=== PATIENT | male | born 1945 | race Caucasian/White ===

== ENCOUNTER 2019-11-18 12:26 | Inpatient (IN) ==
[2019-11-18] MEDS ORDERED: Aspirin 81 MG TAB.CHEW PO ONE (12:32)
[2019-11-18] MEDS ORDERED: 0.9 % Sodium Chloride 500 ML IVC ONE (12:32)
[2019-11-18 12:57] LABS: Basophils % 0.6 %; Eosinophils # 0.2 K/mcL (0.0-0.6); Eosinophils % 3.4 %; Hematocrit 49.1 % (37.5-50.1); Hemoglobin 15.8 g/dL (12.9-16.9); Immature Granulocytes % 0.7 % (0-4); Lymphocytes # 1.1 K/mcL (0.6-4.6); Lymphocytes % 15.1 %; Mean Corpuscular HGB Conc 32.2 g/dL (31.6-35.5); Mean Corpuscular Hemoglobin 31.7 pg (28.0-33.3); Mean Corpuscular Volume 98.6 fL (83.0-100.0); Mean Platelet Volume 10.1 fL (9.4-12.4); Monocytes # 0.7 K/mcL (0.0-1.3); Monocytes % 9.7 %; Platelet Count 240 K/mcL (140-400); Red Blood Count 4.98 M/mcL (4.19-5.50); Red Cell Distribution Width 14.3 % (11.5-14.5); Segmented Neutrophils % 70.5 %
[2019-11-18 12:59] LABS: Prothrombin Time 11.7 Seconds (9.4-12.1)
[2019-11-18 13:02] LABS: Activated Partial Thrombo Time 33.4 Seconds (26.0-36.0)
[2019-11-18 13:14] LABS: BUN/Creatinine Ratio 17 (6-26); Blood Urea Nitrogen 38 mg/dL (8-23); Calcium 8.5 mg/dL (8.6-10.3); Carbon Dioxide 23 mEq/L (23-29); Chloride 108 mEq/L (98-107); Glucose 91 mg/dL (70-105); Osmolality,Calculated 295 (280-300); Potassium 4.9 mEq/L (3.5-5.1); Sodium 138 mEq/L (136-145); Troponin I < 0.03 ng/mL (< 0.04); eGFR For African Americans 34 (> 60); eGFR For Non-African Americans 28 (> 60)
[2019-11-18 13:28] LABS: Bilirubin,Urine Negative (Negative); Blood,Urine Negative (Negative); Clarity,Urine Clear (Clear); Color,Urine Light-Yellow (Yellow); Glucose,Urine (UA) Normal (Normal); Ketones,Urine Negative (Negative); Leukocyte Esterase,Urine Negative (Negative); Mucus,Urine Few per lpf (None-Few); Nitrite,Urine Negative (Negative); Protein,Urine 30 mg/dL (Neg-Trace); RBC,Urine 0-3 per hpf (0-3); Specific Gravity,Urine 1.019 (1.010-1.025); Urobilinogen,Urine Normal (Normal); WBC,Urine 0-3 per hpf (0-3)
[2019-11-18] MEDS ORDERED: Acetaminophen 325 MG TABLET PO PRN (14:14)
[2019-11-18] MEDS ORDERED: Ringers Solution, Lactated 1,000 ML IVC SCH (14:15)
[2019-11-18] MEDS ORDERED: Perflutren Lipid Microsphere 1.3 ML in 0.9 % Sodium Chloride 8.7 ML IVP PRN (14:16)
[2019-11-18] MEDS: hydroCHLOROthiazide 25 MG TABLET PO SCH (15:44)
[2019-11-18] MEDS: atenoloL 50 MG TABLET PO SCH (20:25)
[2019-11-19 01:12] LABS: Basophils % 0.3 %; Eosinophils # 0.2 K/mcL (0.0-0.6); Eosinophils % 3.2 %; Hemoglobin 14.8 g/dL (12.9-16.9); Immature Granulocytes % 0.5 % (0-4); Lymphocytes # 1.2 K/mcL (0.6-4.6); Lymphocytes % 19.6 %; Mean Corpuscular HGB Conc 32.9 g/dL (31.6-35.5); Mean Corpuscular Hemoglobin 32.5 pg (28.0-33.3); Mean Corpuscular Volume 98.9 fL (83.0-100.0); Mean Platelet Volume 10.1 fL (9.4-12.4); Monocytes # 0.6 K/mcL (0.0-1.3); Monocytes % 9.3 %; Neutrophils # 4.2 K/mcL (1.6-8.9); Platelet Count 213 K/mcL (140-400); Red Blood Count 4.55 M/mcL (4.19-5.50); Red Cell Distribution Width 14.2 % (11.5-14.5); Segmented Neutrophils % 67.1 %; White Blood Count 6.3 K/mcL (4.3-11.1)
[2019-11-19 01:30] LABS: Calcium 7.8 mg/dL (8.6-10.3); Chol/HDL Ratio 7.1 (0-4.9); Magnesium 1.4 mg/dL (1.6-2.6); Phosphorous 2.8 mg/dL (2.7-4.5); Potassium 4.4 mEq/L (3.5-5.1)
[2019-11-19] MEDS ORDERED: Regadenoson 0.4 MG/5 ML SYRINGE IVP ONE (09:13)
[2019-11-19] MEDS: hydroCHLOROthiazide 25 MG TABLET PO SCH (12:01)
[2019-11-19] MEDS: Aspirin Enteric Coated 81 MG Tablet PO SCH (12:01)
[2019-11-19] MEDS: atenoloL 50 MG TABLET PO SCH ×2 (12:01→20:25)
[2019-11-19] MEDS: Fenofibrate 54 MG TABLET PO SCH (12:02)
[2019-11-20 07:38] LABS: Calcium 8.7 mg/dL (8.6-10.3); Magnesium 1.8 mg/dL (1.6-2.6); Potassium 4.7 mEq/L (3.5-5.1)
[2019-11-20] MEDS: Aspirin Enteric Coated 81 MG Tablet PO SCH (08:23)
[2019-11-20] MEDS: hydroCHLOROthiazide 25 MG TABLET PO SCH (08:23)
[2019-11-20] MEDS: atenoloL 50 MG TABLET PO SCH ×2 (08:24→19:26)
[2019-11-20] MEDS: Fenofibrate 54 MG TABLET PO SCH (08:24)
[2019-11-20] MEDS ORDERED: *HR* Heparin 10,000 UNIT/10 ML VIAL ONE (10:18)
[2019-11-20] MEDS ORDERED: 0.9 % Sodium Chloride 1,000 ML ONE ×2 (10:18→10:42)
[2019-11-20] MEDS ORDERED: ISOVUE-370 200 ML INFUS..BTL ONE (10:18)
[2019-11-20] MEDS ORDERED: Heparin 1,000 UNITS/500 mL 500 ML ONE (10:18)
[2019-11-20] MEDS ORDERED: Nitroglycerin 1,000 MCG/10 ML VIAL IV ONE (10:18)
[2019-11-20] MEDS ORDERED: 0.9 % Sodium Chloride 1,000 ML IVC SCH (10:30)
[2019-11-20] MEDS ORDERED: *HR* FentaNYL (PF) 100 MCG/2 ML VIAL ONE (10:42)
[2019-11-20] MEDS ORDERED: *HR* Midazolam HCl 2 MG/2 ML VIAL ONE (10:42)
[2019-11-20] MEDS: Isosorbide MONOnitrate (24 HR) 60 MG TAB.ER.24H PO SCH (15:38)
[2019-11-21 02:27] LABS: Calcium 8.6 mg/dL (8.6-10.3); Potassium 4.8 mEq/L (3.5-5.1)
[2019-11-21] MEDS: Fenofibrate 54 MG TABLET PO SCH (08:08)
[2019-11-21] MEDS: atenoloL 50 MG TABLET PO SCH ×2 (08:08→21:27)
[2019-11-21] MEDS: hydroCHLOROthiazide 25 MG TABLET PO SCH (08:09)
[2019-11-21] MEDS: Isosorbide MONOnitrate (24 HR) 60 MG TAB.ER.24H PO SCH (08:09)
[2019-11-21] MEDS: Aspirin Enteric Coated 81 MG Tablet PO SCH (08:09)
[2019-11-21] MEDS: Ranolazine 500 MG TAB.ER.12H PO SCH ×2 (10:18→21:27)
[2019-11-21] MEDS: 0.9 % Sodium Chloride 1,000 ML IVC SCH (11:45)
[2019-11-22] MEDS: Ranolazine 500 MG TAB.ER.12H PO SCH ×2 (07:53→20:59)
[2019-11-22] MEDS: Fenofibrate 54 MG TABLET PO SCH (07:54)
[2019-11-22] MEDS: Isosorbide MONOnitrate (24 HR) 60 MG TAB.ER.24H PO SCH (07:54)
[2019-11-22] MEDS: Aspirin Enteric Coated 81 MG Tablet PO SCH (07:54)
[2019-11-22] MEDS: atenoloL 50 MG TABLET PO SCH ×2 (07:54→20:59)
[2019-11-22] MEDS: 0.9 % Sodium Chloride 1,000 ML IVC SCH (08:02)
[2019-11-22 11:00] LABS: Calcium 8.3 mg/dL (8.6-10.3); Potassium 4.5 mEq/L (3.5-5.1)
[2019-11-23 06:49] VITALS: BP 154/91
[2019-11-23] MEDS: Fenofibrate 54 MG TABLET PO SCH (07:34)
[2019-11-23] MEDS: Isosorbide MONOnitrate (24 HR) 60 MG TAB.ER.24H PO SCH (07:34)
[2019-11-23] MEDS: atenoloL 50 MG TABLET PO SCH (07:34)
[2019-11-23] MEDS: Aspirin Enteric Coated 81 MG Tablet PO SCH (07:34)
[2019-11-23] MEDS: Ranolazine 500 MG TAB.ER.12H PO SCH (07:34)
[2019-11-23 07:52] LABS: Calcium 8.4 mg/dL (8.6-10.3); Potassium 4.5 mEq/L (3.5-5.1)
== END 2019-11-23 10:40 | disposition home or self-care (01) | DRG 287 ==
LOC: 3BNU 12:26 → EMEROOARM 12:26 → SUATTDRO 13:48 → 3BNU 14:17
PROVIDERS: ADMIT Internal Medicine; ATTEND Internal Medicine

== ENCOUNTER 2019-12-20 10:39 | Inpatient (IN) ==
[2019-12-20 11:45] LABS: Blood Urea Nitrogen > 130 mg/dL (8-23); Calcium 8.2 mg/dL (8.6-10.3); Carbon Dioxide 19 mEq/L (23-29); Chloride 94 mEq/L (98-107); Glucose 116 mg/dL (70-105); Potassium 4.5 mEq/L (3.5-5.1); Sodium 130 mEq/L (136-145); eGFR For African Americans 8 (> 60); eGFR For Non-African Americans 7 (> 60)
[2019-12-20 11:46] LABS: Bilirubin,Urine Negative (Negative); Blood,Urine Negative (Negative); Clarity,Urine Clear (Clear); Color,Urine Yellow (Yellow); Glucose,Urine (UA) Normal (Normal); Ketones,Urine Negative (Negative); Leukocyte Esterase,Urine Negative (Negative); Nitrite,Urine Negative (Negative); PH,Urine 5.5 pH Units (5.0-8.0); Protein,Urine Negative (Neg-Trace); Specific Gravity,Urine 1.017 (1.010-1.025); Urobilinogen,Urine Normal (Normal)
[2019-12-20 11:52] LABS: Troponin I < 0.03 ng/mL (< 0.04)
[2019-12-20 12:28] LABS: Basophils % 0.2 %; Eosinophils % 0.1 %; Hematocrit 43.5 % (37.5-50.1); Immature Granulocytes % 1.2 % (0-4); Lymphocytes # 0.3 K/mcL (0.6-4.6); Mean Corpuscular HGB Conc 34.5 g/dL (31.6-35.5); Mean Platelet Volume 10.5 fL (9.4-12.4); Monocytes # 0.5 K/mcL (0.0-1.3); Neutrophils # 9.2 K/mcL (1.6-8.9); Platelet Count 376 K/mcL (140-400); Red Blood Count 4.84 M/mcL (4.19-5.50); Red Cell Distribution Width 13.6 % (11.5-14.5); Segmented Neutrophils % 90.5 %; White Blood Count 10.1 K/mcL (4.3-11.1)
[2019-12-20 12:32] LABS: Mean Corpuscular Volume 89.9 fL (83.0-100.0)
[2019-12-20] MEDS ORDERED: 0.9 % Sodium Chloride 1,000 ML IV ONE (13:16)
[2019-12-20] MEDS ORDERED: Naloxone 0.4 MG/ML INJ IVP PRN (13:59)
[2019-12-20 14:23] LABS: INR 1.4; Prothrombin Time 16.3 Seconds (9.4-12.1)
[2019-12-20 14:26] LABS: Activated Partial Thrombo Time 32.3 Seconds (26.0-36.0)
[2019-12-20 14:33] LABS: Magnesium 2.2 mg/dL (1.6-2.6); Phosphorous 6.5 mg/dL (2.7-4.5)
[2019-12-20 15:09] LABS: Creatine Kinase 100 Units/L (30-223); Uric Acid 13.1 mg/dL (2.3-7.6)
[2019-12-20] MEDS ORDERED: 0.9 % Sodium Chloride 1,000 ML IVC SCH ×2 (15:45)
[2019-12-20 17:03] LABS: Protein/Creatinine Ratio,Urine 0.2 mg/mg (0.00-0.20); Sodium, Urine 35.7 mEq/L
[2019-12-20] MEDS: atenoloL 50 MG TABLET PO SCH (20:49)
[2019-12-20] MEDS: Ranolazine 500 MG TAB.ER.12H PO SCH (20:49)
[2019-12-21 02:44] LABS: Basophils % 0.3 %; Eosinophils % 0.2 %; Hematocrit 41.7 % (37.5-50.1); Hemoglobin 14.4 g/dL (12.9-16.9); Immature Granulocytes % 2.1 % (0-4); Lymphocytes # 0.4 K/mcL (0.6-4.6); Lymphocytes % 3.8 %; Mean Corpuscular HGB Conc 34.5 g/dL (31.6-35.5); Mean Corpuscular Hemoglobin 31.5 pg (28.0-33.3); Mean Corpuscular Volume 91.2 fL (83.0-100.0); Mean Platelet Volume 10.4 fL (9.4-12.4); Monocytes # 0.6 K/mcL (0.0-1.3); Monocytes % 6.1 %; Neutrophils # 9.1 K/mcL (1.6-8.9); Platelet Count 352 K/mcL (140-400); Red Blood Count 4.57 M/mcL (4.19-5.50); Red Cell Distribution Width 13.7 % (11.5-14.5); Segmented Neutrophils % 87.5 %; White Blood Count 10.4 K/mcL (4.3-11.1)
[2019-12-21 03:07] LABS: Blood Urea Nitrogen > 130 mg/dL (8-23); Carbon Dioxide 18 mEq/L (23-29); Chloride 99 mEq/L (98-107); Glucose 92 mg/dL (70-105); Potassium 4.4 mEq/L (3.5-5.1); Sodium 132 mEq/L (136-145); eGFR For African Americans 9 (> 60); eGFR For Non-African Americans 7 (> 60)
[2019-12-21] MEDS: Ranolazine 500 MG TAB.ER.12H PO SCH ×2 (08:24→21:11)
[2019-12-21] MEDS: Aspirin Enteric Coated 81 MG Tablet PO SCH (08:24)
[2019-12-21] MEDS: atenoloL 50 MG TABLET PO SCH ×2 (08:25→21:14)
[2019-12-21] MEDS: Isosorbide MONOnitrate (24 HR) 60 MG TAB.ER.24H PO SCH (08:25)
[2019-12-21] MEDS ORDERED: Fenofibrate 54 MG TABLET PO SCH (09:00)
[2019-12-21] MEDS ORDERED: 0.9 % Sodium Chloride 250 ML IVC PRN (09:48)
[2019-12-21] MEDS ORDERED: 0.9 % Sodium Chloride 1,000 ML PRIME SCH (10:00)
[2019-12-21] MEDS ORDERED: *HR* Heparin 10,000 UNIT/10 ML VIAL IV PRN (10:12)
[2019-12-21 11:49] LABS: Hepatitis B Surface Antibody < 3.10 mIU/mL
[2019-12-21] MEDS ORDERED: *HR* Heparin 5,000 UNIT/ML VIAL ONE (11:54)
[2019-12-21 12:01] LABS: Hepatitis B Surface Antigen Nonreactive (Nonreactive)
[2019-12-21 12:30] LABS: Hepatitis B Core IgM Nonreactive (Nonreactive)
[2019-12-22 04:52] LABS: Basophils % 0.3 %; Eosinophils # 0.1 K/mcL (0.0-0.6); Eosinophils % 0.4 %; Hematocrit 39.8 % (37.5-50.1); Hemoglobin 13.6 g/dL (12.9-16.9); Immature Granulocytes % 2.3 % (0-4); Lymphocytes # 0.6 K/mcL (0.6-4.6); Lymphocytes % 4.9 %; Mean Corpuscular HGB Conc 34.2 g/dL (31.6-35.5); Mean Corpuscular Hemoglobin 31.7 pg (28.0-33.3); Mean Corpuscular Volume 92.8 fL (83.0-100.0); Mean Platelet Volume 10.3 fL (9.4-12.4); Monocytes # 0.8 K/mcL (0.0-1.3); Monocytes % 7.2 %; Platelet Count 355 K/mcL (140-400); Red Blood Count 4.29 M/mcL (4.19-5.50); Red Cell Distribution Width 13.9 % (11.5-14.5); Segmented Neutrophils % 84.9 %; White Blood Count 11.7 K/mcL (4.3-11.1)
[2019-12-22 05:08] LABS: Calcium 8.3 mg/dL (8.6-10.3); Phosphorous 4.8 mg/dL (2.7-4.5); Potassium 4.4 mEq/L (3.5-5.1)
[2019-12-22] MEDS ORDERED: 0.9 % Sodium Chloride 250 ML IVC PRN (07:03)
[2019-12-22] MEDS: Aspirin Enteric Coated 81 MG Tablet PO SCH (08:22)
[2019-12-22] MEDS: Ranolazine 500 MG TAB.ER.12H PO SCH ×2 (08:22→21:08)
[2019-12-22] MEDS ORDERED: *HR* Heparin 10,000 UNIT/10 ML VIAL IV PRN (12:29)
[2019-12-22] MEDS: atenoloL 50 MG TABLET PO SCH ×2 (13:38→21:08)
[2019-12-22] MEDS ORDERED: Acetaminophen 325 MG TABLET PO PRN (13:50)
[2019-12-22] MEDS: Isosorbide MONOnitrate (24 HR) 60 MG TAB.ER.24H PO SCH (14:45)
[2019-12-22] MEDS: *HR* Heparin 5,000 UNIT/ML VIAL SQ SCH (18:16)
[2019-12-23 04:09] LABS: Basophils % 0.4 %; Eosinophils # 0.1 K/mcL (0.0-0.6); Eosinophils % 1.2 %; Hematocrit 40.2 % (37.5-50.1); Hemoglobin 13.3 g/dL (12.9-16.9); Immature Granulocytes % 2.5 % (0-4); Lymphocytes # 0.7 K/mcL (0.6-4.6); Lymphocytes % 6.3 %; Mean Corpuscular HGB Conc 33.1 g/dL (31.6-35.5); Mean Corpuscular Hemoglobin 31.4 pg (28.0-33.3); Mean Platelet Volume 10.2 fL (9.4-12.4); Monocytes # 0.7 K/mcL (0.0-1.3); Monocytes % 6.8 %; Neutrophils # 8.6 K/mcL (1.6-8.9); Platelet Count 316 K/mcL (140-400); Red Blood Count 4.23 M/mcL (4.19-5.50); Red Cell Distribution Width 13.9 % (11.5-14.5); Segmented Neutrophils % 82.8 %; White Blood Count 10.4 K/mcL (4.3-11.1)
[2019-12-23 04:51] LABS: Albumin 2.6 g/dL (3.5-5.7); Albumin/Globulin Ratio 0.9 (1.1-2.2); Bilirubin,Total 1.3 mg/dL (0.3-1.0); Calcium 8.4 mg/dL (8.6-10.3); Globulin 2.9 g/dL (2.4-3.5); Potassium 4.6 mEq/L (3.5-5.1); Total Protein 5.5 g/dL (6.4-8.9)
[2019-12-23] MEDS: *HR* Heparin 5,000 UNIT/ML VIAL SQ SCH ×2 (06:16→17:14)
[2019-12-23] MEDS: Ranolazine 500 MG TAB.ER.12H PO SCH ×2 (08:03→20:07)
[2019-12-23] MEDS: Aspirin Enteric Coated 81 MG Tablet PO SCH (08:03)
[2019-12-23] MEDS: Isosorbide MONOnitrate (24 HR) 60 MG TAB.ER.24H PO SCH (08:03)
[2019-12-23] MEDS: atenoloL 50 MG TABLET PO SCH ×2 (08:03→20:07)
[2019-12-24] MEDS: *HR* Heparin 5,000 UNIT/ML VIAL SQ SCH ×2 (06:10→17:17)
[2019-12-24 06:34] LABS: Hematocrit 40.6 % (37.5-50.1); Hemoglobin 13.2 g/dL (12.9-16.9); Mean Corpuscular HGB Conc 32.5 g/dL (31.6-35.5); Mean Corpuscular Hemoglobin 30.8 pg (28.0-33.3); Mean Corpuscular Volume 94.9 fL (83.0-100.0); Mean Platelet Volume 10.2 fL (9.4-12.4); Platelet Count 337 K/mcL (140-400); Red Blood Count 4.28 M/mcL (4.19-5.50); Red Cell Distribution Width 13.8 % (11.5-14.5); White Blood Count 11.4 K/mcL (4.3-11.1)
[2019-12-24 06:57] LABS: Albumin 2.7 g/dL (3.5-5.7); Albumin/Globulin Ratio 0.9 (1.1-2.2); Bilirubin,Total 1.3 mg/dL (0.3-1.0); Calcium 8.8 mg/dL (8.6-10.3); Globulin 3.1 g/dL (2.4-3.5); Potassium 4.6 mEq/L (3.5-5.1); Total Protein 5.8 g/dL (6.4-8.9)
[2019-12-24] MEDS ORDERED: *HR* Heparin 10,000 UNIT/10 ML VIAL IV PRN (08:27)
[2019-12-24] MEDS ORDERED: 0.9 % Sodium Chloride 250 ML IVC PRN (08:27)
[2019-12-24] MEDS: Isosorbide MONOnitrate (24 HR) 60 MG TAB.ER.24H PO SCH (10:06)
[2019-12-24] MEDS: atenoloL 50 MG TABLET PO SCH ×2 (10:06→20:27)
[2019-12-24] MEDS: Acetaminophen 325 MG TABLET PO SCH ×3 (11:22→17:16)
[2019-12-24] MEDS: Aspirin Enteric Coated 81 MG Tablet PO SCH (11:37)
[2019-12-24] MEDS: Ranolazine 500 MG TAB.ER.12H PO SCH ×2 (11:37→21:33)
[2019-12-24] MEDS ORDERED: *HR* FentaNYL (PF) 100 MCG/2 ML VIAL IVP ONE (12:17)
[2019-12-24] MEDS ORDERED: Clindamycin 600 MG/50 ML 600 MG/50 ML IV.SOLN IVPB ONE (12:17)
[2019-12-24] MEDS ORDERED: *HR* Midazolam HCl 2 MG/2 ML VIAL IVP ONE (12:17)
[2019-12-24] MEDS ORDERED: Lidocaine/EPI 1:100k 1% 50 ML VIAL ONE (12:26)
[2019-12-24] MEDS ORDERED: Heparin 1,000 UNITS/500 mL 500 ML ONE (12:26)
[2019-12-24] MEDS ORDERED: 0.9 % Sodium Chloride 500 ML ONE (12:56)
[2019-12-24] MEDS ORDERED: *HR* Heparin 5,000 UNIT/ML VIAL ONE (13:13)
[2019-12-25] MEDS: Acetaminophen 325 MG TABLET PO SCH ×5 (00:26→23:59)
[2019-12-25 06:28] LABS: Hematocrit 41.8 % (37.5-50.1); Hemoglobin 13.8 g/dL (12.9-16.9); Mean Corpuscular Hemoglobin 31.2 pg (28.0-33.3); Mean Corpuscular Volume 94.6 fL (83.0-100.0); Platelet Count 289 K/mcL (140-400); Red Blood Count 4.42 M/mcL (4.19-5.50); Red Cell Distribution Width 13.7 % (11.5-14.5)
[2019-12-25] MEDS: *HR* Heparin 5,000 UNIT/ML VIAL SQ SCH ×2 (06:43→17:08)
[2019-12-25 06:48] LABS: Calcium 8.7 mg/dL (8.6-10.3); Potassium 4.6 mEq/L (3.5-5.1)
[2019-12-25] MEDS: atenoloL 50 MG TABLET PO SCH ×2 (07:43→20:24)
[2019-12-25] MEDS: Isosorbide MONOnitrate (24 HR) 60 MG TAB.ER.24H PO SCH (07:43)
[2019-12-25] MEDS: Ranolazine 500 MG TAB.ER.12H PO SCH ×2 (07:49→20:24)
[2019-12-25] MEDS: Aspirin Enteric Coated 81 MG Tablet PO SCH (07:49)
[2019-12-26] MEDS: Acetaminophen 325 MG TABLET PO SCH ×4 (05:02→23:51)
[2019-12-26] MEDS: *HR* Heparin 5,000 UNIT/ML VIAL SQ SCH ×2 (05:03→16:48)
[2019-12-26 06:39] LABS: Hematocrit 42.3 % (37.5-50.1); Hemoglobin 13.9 g/dL (12.9-16.9); Mean Corpuscular HGB Conc 32.9 g/dL (31.6-35.5); Mean Corpuscular Hemoglobin 31.1 pg (28.0-33.3); Mean Corpuscular Volume 94.6 fL (83.0-100.0); Mean Platelet Volume 9.6 fL (9.4-12.4); Platelet Count 276 K/mcL (140-400); Red Blood Count 4.47 M/mcL (4.19-5.50); Red Cell Distribution Width 13.5 % (11.5-14.5)
[2019-12-26 06:59] LABS: Calcium 8.9 mg/dL (8.6-10.3); Potassium 4.6 mEq/L (3.5-5.1)
[2019-12-26] MEDS: Aspirin Enteric Coated 81 MG Tablet PO SCH (07:45)
[2019-12-26] MEDS: Ranolazine 500 MG TAB.ER.12H PO SCH ×2 (07:45→20:47)
[2019-12-26] MEDS ORDERED: 0.9 % Sodium Chloride 250 ML IVC PRN (08:09)
[2019-12-26] MEDS ORDERED: *HR* Heparin 10,000 UNIT/10 ML VIAL IV PRN (08:09)
[2019-12-26] MEDS ORDERED: 0.9 % Sodium Chloride 1,000 ML PRIME SCH (08:15)
[2019-12-26] MEDS: Isosorbide MONOnitrate (24 HR) 60 MG TAB.ER.24H PO SCH (13:42)
[2019-12-26] MEDS: atenoloL 50 MG TABLET PO SCH ×2 (13:42→20:43)
[2019-12-26] MEDS ORDERED: Ondansetron ODT 4 MG TAB.RAPDIS SL PRN (14:22)
[2019-12-27] MEDS: Acetaminophen 325 MG TABLET PO SCH ×4 (05:37→23:55)
[2019-12-27] MEDS: *HR* Heparin 5,000 UNIT/ML VIAL SQ SCH ×2 (05:38→16:57)
[2019-12-27 07:10] LABS: Hematocrit 41.4 % (37.5-50.1); Hemoglobin 13.5 g/dL (12.9-16.9); Mean Corpuscular HGB Conc 32.6 g/dL (31.6-35.5); Mean Corpuscular Hemoglobin 31.2 pg (28.0-33.3); Mean Corpuscular Volume 95.6 fL (83.0-100.0); Mean Platelet Volume 9.8 fL (9.4-12.4); Platelet Count 246 K/mcL (140-400); Red Blood Count 4.33 M/mcL (4.19-5.50); Red Cell Distribution Width 13.6 % (11.5-14.5); White Blood Count 9.1 K/mcL (4.3-11.1)
[2019-12-27 07:30] LABS: Calcium 8.8 mg/dL (8.6-10.3); Potassium 4.7 mEq/L (3.5-5.1)
[2019-12-27] MEDS: Ranolazine 500 MG TAB.ER.12H PO SCH ×2 (08:07→20:44)
[2019-12-27] MEDS: Aspirin Enteric Coated 81 MG Tablet PO SCH (08:07)
[2019-12-27] MEDS: Isosorbide MONOnitrate (24 HR) 60 MG TAB.ER.24H PO SCH (08:08)
[2019-12-27] MEDS: atenoloL 50 MG TABLET PO SCH (08:09)
[2019-12-28 01:55] LABS: Calcium 8.5 mg/dL (8.6-10.3); Potassium 4.6 mEq/L (3.5-5.1)
[2019-12-28] MEDS: Acetaminophen 325 MG TABLET PO SCH ×2 (06:05→12:54)
[2019-12-28] MEDS: *HR* Heparin 5,000 UNIT/ML VIAL SQ SCH (06:06)
[2019-12-28] MEDS: Ranolazine 500 MG TAB.ER.12H PO SCH (07:13)
[2019-12-28] MEDS: Aspirin Enteric Coated 81 MG Tablet PO SCH (07:13)
[2019-12-28] MEDS ORDERED: 0.9 % Sodium Chloride 250 ML IVC PRN (08:00)
[2019-12-28] MEDS ORDERED: *HR* Heparin 10,000 UNIT/10 ML VIAL IV PRN (08:00)
[2019-12-28] MEDS ORDERED: atenoloL 50 MG TABLET PO SCH (09:00)
[2019-12-28 12:33] VITALS: BP 123/82
[2019-12-28] MEDS: Isosorbide MONOnitrate (24 HR) 60 MG TAB.ER.24H PO SCH (12:54)
== END 2019-12-28 14:17 | disposition home or self-care (01) | DRG 674 ==
LOC: EMEROOARM 10:39 → 2ANU 10:39 → SUATTDRO 13:27 → 2ANU 15:00
PROVIDERS: ADMIT Student in an Organized Health Care Education/Training Program; ATTEND Internal Medicine
PROC: IRPERMA (2019-12-24 12:00)

== ENCOUNTER 2019-12-28 14:30 | Observation (INO) ==
[2019-12-28 14:49] LABS: Basophils # 0.1 K/mcL (0.0-0.2); Basophils % 0.5 %; Eosinophils # 0.3 K/mcL (0.0-0.6); Eosinophils % 2.5 %; Hemoglobin 14.3 g/dL (12.9-16.9); Immature Granulocytes % 2.6 % (0-4); Lymphocytes # 1.4 K/mcL (0.6-4.6); Lymphocytes % 12.7 %; Mean Corpuscular HGB Conc 32.5 g/dL (31.6-35.5); Mean Corpuscular Hemoglobin 31.2 pg (28.0-33.3); Mean Corpuscular Volume 96.1 fL (83.0-100.0); Mean Platelet Volume 10.2 fL (9.4-12.4); Monocytes # 0.9 K/mcL (0.0-1.3); Monocytes % 8.1 %; Platelet Count 289 K/mcL (140-400); Red Blood Count 4.58 M/mcL (4.19-5.50); Red Cell Distribution Width 13.4 % (11.5-14.5); Segmented Neutrophils % 73.6 %; White Blood Count 10.9 K/mcL (4.3-11.1)
[2019-12-28 15:15] LABS: Calcium 8.6 mg/dL (8.6-10.3); Potassium 4.4 mEq/L (3.5-5.1)
[2019-12-28] MEDS ORDERED: 0.9 % Sodium Chloride 250 ML ONE (15:19)
[2019-12-28] MEDS: 0.9 % Sodium Chloride 250 ML IVC ONE (15:23)
[2019-12-28] MEDS ORDERED: Ondansetron ODT 4 MG TAB.RAPDIS SL PRN (16:16)
[2019-12-28] MEDS ORDERED: Naloxone 0.4 MG/ML INJ IVP PRN (16:16)
[2019-12-28] MEDS ORDERED: 0.9 % Sodium Chloride 500 ML IV ONE (16:17)
[2019-12-28] MEDS: 0.9 % Sodium Chloride 500 ML IV ONE ×2 (16:26→17:52)
[2019-12-29 06:18] LABS: Basophils % 0.6 %; Eosinophils # 0.1 K/mcL (0.0-0.6); Hematocrit 38.2 % (37.5-50.1); Immature Granulocytes % 2.8 % (0-4); Lymphocytes # 0.7 K/mcL (0.6-4.6); Lymphocytes % 10.7 %; Mean Corpuscular HGB Conc 32.5 g/dL (31.6-35.5); Mean Corpuscular Hemoglobin 31.6 pg (28.0-33.3); Mean Corpuscular Volume 97.4 fL (83.0-100.0); Mean Platelet Volume 10.5 fL (9.4-12.4); Monocytes # 0.6 K/mcL (0.0-1.3); Monocytes % 9.4 %; Neutrophils # 4.8 K/mcL (1.6-8.9); Platelet Count 197 K/mcL (140-400); Red Blood Count 3.92 M/mcL (4.19-5.50); Red Cell Distribution Width 13.5 % (11.5-14.5); Segmented Neutrophils % 74.5 %; White Blood Count 6.5 K/mcL (4.3-11.1)
[2019-12-29 06:31] LABS: Hemoglobin 12.4 g/dL (12.9-16.9)
[2019-12-29 06:36] LABS: Calcium 8.3 mg/dL (8.6-10.3); Potassium 4.4 mEq/L (3.5-5.1)
[2019-12-29 07:36] VITALS: BP 163/82
== END 2019-12-29 11:31 | disposition home or self-care (01) ==
LOC: EMEROOARM 14:30 → 2ANU 14:30
PROVIDERS: ADMIT Internal Medicine; ATTEND Internal Medicine

== ENCOUNTER 2020-09-07 02:29 | Observation (INO) ==
[2020-09-07 03:15] LABS: Basophils % 0.4 %; Eosinophils # 0.3 K/mcL (0.0-0.6); Eosinophils % 4.4 %; Hematocrit 41.3 % (37.5-50.1); Hemoglobin 13.7 g/dL (12.9-16.9); Immature Granulocytes % 0.6 % (0-4); Lymphocytes # 1.3 K/mcL (0.6-4.6); Lymphocytes % 17.9 %; Mean Corpuscular HGB Conc 33.2 g/dL (31.6-35.5); Mean Corpuscular Hemoglobin 32.5 pg (28.0-33.3); Mean Corpuscular Volume 98.1 fL (83.0-100.0); Mean Platelet Volume 9.9 fL (9.4-12.4); Monocytes # 0.6 K/mcL (0.0-1.3); Monocytes % 8.5 %; Neutrophils # 4.8 K/mcL (1.6-8.9); Platelet Count 157 K/mcL (140-400); Red Blood Count 4.21 M/mcL (4.19-5.50); Red Cell Distribution Width 13.8 % (11.5-14.5); Segmented Neutrophils % 68.2 %
[2020-09-07 03:44] LABS: BUN/Creatinine Ratio 15 (6-26); Blood Urea Nitrogen 28 mg/dL (8-23); Calcium 7.8 mg/dL (8.6-10.3); Carbon Dioxide 23 mEq/L (23-29); Chloride 107 mEq/L (98-107); Glucose 88 mg/dL (70-105); Magnesium 1.1 mg/dL (1.6-2.6); Osmolality,Calculated 297 (280-300); Phosphorous 3.5 mg/dL (2.7-4.5); Potassium 4.2 mEq/L (3.5-5.1); Sodium 141 mEq/L (136-145); Troponin I < 0.03 ng/mL (< 0.04); eGFR For African Americans 42 (> 60); eGFR For Non-African Americans 34 (> 60)
[2020-09-07] MEDS ORDERED: Isovue-370 500 ML BOTTLE IVP ONE (04:03)
[2020-09-07] MEDS ORDERED: Ondansetron 4 MG/2 ML VIAL IVP PRN (07:58)
[2020-09-07] MEDS ORDERED: Naloxone 0.4 MG/ML INJ IVP PRN (07:58)
[2020-09-07] MEDS ORDERED: *HR* OxyCODONE Immed Rel 5 MG TABLET PO PRN (07:58)
[2020-09-07] MEDS ORDERED: Acetaminophen 325 MG TABLET PO PRN (07:58)
[2020-09-07] MEDS: Isosorbide MONOnitrate (24 HR) 60 MG TAB.ER.24H PO SCH (13:00)
[2020-09-07] MEDS: Ranolazine 500 MG TAB.ER.12H PO SCH ×2 (13:00→21:36)
[2020-09-07] MEDS: Metoprolol XL (24 HR) Succ 25 MG TAB.ER.24H PO SCH (13:00)
[2020-09-07] MEDS: Aspirin Enteric Coated 81 MG Tablet PO SCH (13:01)
[2020-09-07] MEDS: *HR* Heparin 5,000 UNIT/ML VIAL SQ SCH (17:41)
[2020-09-08 03:11] LABS: Calcium 8.2 mg/dL (8.6-10.3); Magnesium 1.8 mg/dL (1.6-2.6); Potassium 4.2 mEq/L (3.5-5.1)
[2020-09-08] MEDS: *HR* Heparin 5,000 UNIT/ML VIAL SQ SCH (05:15)
[2020-09-08] MEDS ORDERED: amLODIPine 5 MG TABLET PO SCH (09:00)
[2020-09-08] MEDS ORDERED: Cyanocobalamin (B-12) 1,000 MCG/ML VIAL SQ SCH (09:00)
[2020-09-08] MEDS: Ranolazine 500 MG TAB.ER.12H PO SCH (09:52)
[2020-09-08] MEDS: Isosorbide MONOnitrate (24 HR) 60 MG TAB.ER.24H PO SCH (09:53)
[2020-09-08] MEDS: Aspirin Enteric Coated 81 MG Tablet PO SCH (09:53)
[2020-09-08] MEDS: Metoprolol XL (24 HR) Succ 25 MG TAB.ER.24H PO SCH (09:54)
[2020-09-08 10:58] VITALS: BP 143/70
== END 2020-09-08 12:50 | disposition home or self-care (01) ==
LOC: EMEROOARM 02:29 → 2ANU 02:29
PROVIDERS: ADMIT Family Medicine; ATTEND Family Medicine

== ENCOUNTER 2021-05-14 22:09 | Inpatient (IN) ==
[2021-05-14 23:26] LABS: Basophils % 0.5 %; Hematocrit 46.5 % (37.5-50.1); Hemoglobin 16.8 g/dL (12.9-16.9); Immature Granulocytes % 1.9 % (0-4); Lymphocytes # 0.7 K/mcL (0.6-4.6); Lymphocytes % 10.7 %; Mean Corpuscular HGB Conc 36.1 g/dL (31.6-35.5); Mean Corpuscular Hemoglobin 32.9 pg (28.0-33.3); Mean Platelet Volume 10.4 fL (9.4-12.4); Monocytes # 0.7 K/mcL (0.0-1.3); Monocytes % 11.5 %; Neutrophils # 4.8 K/mcL (1.6-8.9); Platelet Count 230 K/mcL (140-400); Red Blood Count 5.11 M/mcL (4.19-5.50); Red Cell Distribution Width 12.6 % (11.5-14.5); Segmented Neutrophils % 75.4 %; White Blood Count 6.4 K/mcL (4.3-11.1)
[2021-05-14 23:32] LABS: Albumin 3.4 g/dL (3.5-5.7); Albumin/Globulin Ratio 1.1 (1.1-2.2); Bilirubin,Direct 0.3 mg/dL (0.0-0.2); Bilirubin,Indirect 0.8 mg/dL (0.0-1.0); Bilirubin,Total 1.1 mg/dL (0.3-1.0); Calcium 7.3 mg/dL (8.6-10.3); Globulin 3.2 g/dL (2.4-3.5); Potassium 3.4 mEq/L (3.5-5.1); Total Protein 6.6 g/dL (6.4-8.9)
[2021-05-14 23:33] LABS: Troponin I 0.03 ng/mL (< 0.04)
[2021-05-15 00:50] LABS: Influenza A PCR Negative (Negative); Influenza B PCR Negative (Negative); Resp. Syncytial Virus PCR Negative (Negative)
[2021-05-15 00:56] LABS: SARS-CoV-2 by PCR (In House) Positive (Negative)
[2021-05-15] MEDS ORDERED: Melatonin 3 MG TABLET PO PRN (03:01)
[2021-05-15] MEDS ORDERED: Acetaminophen 325 MG TABLET PO PRN (03:01)
[2021-05-15] MEDS ORDERED: Ondansetron 4 MG/2 ML VIAL IVP PRN (03:01)
[2021-05-15] MEDS ORDERED: Naloxone 0.4 MG/ML INJ IVP PRN (03:01)
[2021-05-15] MEDS ORDERED: *HR* Promethazine 25 MG/ML VIAL IM PRN (03:01)
[2021-05-15] MEDS ORDERED: *HR* HYDROcodone/Acet 5/325 mg TABLET PO PRN (03:01)
[2021-05-15] MEDS: *HR* Heparin 5,000 UNIT/ML VIAL SQ SCH ×3 (05:35→20:30)
[2021-05-15] MEDS ORDERED: Remdesivir 200 MG in 0.9 % Sodium Chloride 100 ML IVPB ONE (07:30)
[2021-05-15 08:06] LABS: Basophils % 0.7 %; Eosinophils % 0.2 %; Hematocrit 44.4 % (37.5-50.1); Hemoglobin 15.8 g/dL (12.9-16.9); Immature Granulocytes % 2.3 % (0-4); Lymphocytes # 0.7 K/mcL (0.6-4.6); Lymphocytes % 12.9 %; Mean Corpuscular HGB Conc 35.6 g/dL (31.6-35.5); Mean Corpuscular Hemoglobin 32.6 pg (28.0-33.3); Mean Corpuscular Volume 91.7 fL (83.0-100.0); Mean Platelet Volume 10.3 fL (9.4-12.4); Monocytes # 0.7 K/mcL (0.0-1.3); Monocytes % 11.3 %; Neutrophils # 4.2 K/mcL (1.6-8.9); Platelet Count 230 K/mcL (140-400); Red Blood Count 4.84 M/mcL (4.19-5.50); Red Cell Distribution Width 12.8 % (11.5-14.5); Segmented Neutrophils % 72.6 %; White Blood Count 5.7 K/mcL (4.3-11.1)
[2021-05-15 08:08] LABS: INR 1.3; Prothrombin Time 14.6 Seconds (9.4-12.1)
[2021-05-15 08:19] LABS: Albumin 3.3 g/dL (3.5-5.7); Albumin/Globulin Ratio 1.2 (1.1-2.2); Bilirubin,Total 1.2 mg/dL (0.3-1.0); Calcium 7.1 mg/dL (8.6-10.3); Globulin 2.7 g/dL (2.4-3.5); Magnesium 1.2 mg/dL (1.6-2.6); Phosphorous 2.2 mg/dL (2.7-4.5); Potassium 3.5 mEq/L (3.5-5.1)
[2021-05-15] MEDS: Dexamethasone Sodium Phos/PF 10 MG/ML VIAL IVP SCH (08:19)
[2021-05-15] MEDS: Aspirin Enteric Coated 81 MG Tablet PO SCH (08:19)
[2021-05-15] MEDS: amLODIPine 5 MG TABLET PO SCH (08:19)
[2021-05-15] MEDS ORDERED: Isosorbide MONOnitrate (24 HR) 30 MG TAB.ER.24H PO SCH (09:00)
[2021-05-15] MEDS ORDERED: Metoprolol XL (24 HR) Succ 25 MG TAB.ER.24H PO SCH (09:00)
[2021-05-15] MEDS: Ranolazine 500 MG TAB.ER.12H PO SCH (20:30)
[2021-05-16] MEDS: *HR* Heparin 5,000 UNIT/ML VIAL SQ SCH ×3 (05:30→21:11)
[2021-05-16] MEDS ORDERED: Remdesivir 100 MG in 0.9 % Sodium Chloride 100 ML IVPB SCH (07:00)
[2021-05-16 07:31] LABS: Hematocrit 43.9 % (37.5-50.1); Hemoglobin 15.7 g/dL (12.9-16.9); Mean Corpuscular HGB Conc 35.8 g/dL (31.6-35.5); Mean Corpuscular Hemoglobin 32.8 pg (28.0-33.3); Mean Corpuscular Volume 91.6 fL (83.0-100.0); Mean Platelet Volume 10.1 fL (9.4-12.4); Platelet Count 246 K/mcL (140-400); Red Blood Count 4.79 M/mcL (4.19-5.50); Red Cell Distribution Width 12.9 % (11.5-14.5); White Blood Count 6.7 K/mcL (4.3-11.1)
[2021-05-16 07:51] LABS: Calcium 7.2 mg/dL (8.6-10.3); Potassium 3.6 mEq/L (3.5-5.1)
[2021-05-16 07:54] LABS: Albumin 3.1 g/dL (3.5-5.7); Bilirubin,Direct 0.3 mg/dL (0.0-0.2); Bilirubin,Indirect 0.5 mg/dL (0.0-1.0); Bilirubin,Total 0.8 mg/dL (0.3-1.0); Total Protein 6.1 g/dL (6.4-8.9)
[2021-05-16] MEDS: Isosorbide MONOnitrate (24 HR) 60 MG TAB.ER.24H PO SCH (08:07)
[2021-05-16] MEDS: Dexamethasone Sodium Phos/PF 10 MG/ML VIAL IVP SCH (08:07)
[2021-05-16] MEDS: Cholecalciferol (D-3) 1,000 UNIT (25MCG) TABLET PO SCH (08:07)
[2021-05-16] MEDS: Metoprolol XL (24 HR) Succ 50 MG TAB.ER.24H PO SCH (08:07)
[2021-05-16] MEDS: Isosorbide MONOnitrate (24 HR) 30 MG TAB.ER.24H PO SCH (08:07)
[2021-05-16] MEDS: amLODIPine 5 MG TABLET PO SCH (08:07)
[2021-05-16] MEDS: Ranolazine 500 MG TAB.ER.12H PO SCH ×2 (08:07→21:11)
[2021-05-16] MEDS: Cyanocobalamin (B-12) 1,000 MCG TABLET PO SCH (08:08)
[2021-05-16] MEDS: Aspirin Enteric Coated 81 MG Tablet PO SCH (08:08)
[2021-05-16] MEDS ORDERED: 0.9 % Sodium Chloride 1,000 ML IVC SCH (11:45)
[2021-05-17 02:07] LABS: Albumin/Globulin Ratio 1.1 (1.1-2.2); Bilirubin,Direct 0.1 mg/dL (0.0-0.2); Bilirubin,Indirect 0.4 mg/dL (0.0-1.0); Bilirubin,Total 0.5 mg/dL (0.3-1.0); Globulin 2.7 g/dL (2.4-3.5); Total Protein 5.7 g/dL (6.4-8.9)
[2021-05-17 02:09] LABS: Potassium 3.8 mEq/L (3.5-5.1)
[2021-05-17] MEDS ORDERED: GuaiFENesin/Codeine Oral Soln 5 ML UDC PO PRN (02:54)
[2021-05-17] MEDS: *HR* Heparin 5,000 UNIT/ML VIAL SQ SCH ×2 (06:20→12:58)
[2021-05-17] MEDS: Dexamethasone Sodium Phos/PF 10 MG/ML VIAL IVP SCH (08:12)
[2021-05-17] MEDS: Metoprolol XL (24 HR) Succ 50 MG TAB.ER.24H PO SCH (08:12)
[2021-05-17] MEDS: Ranolazine 500 MG TAB.ER.12H PO SCH (08:12)
[2021-05-17] MEDS: Cholecalciferol (D-3) 1,000 UNIT (25MCG) TABLET PO SCH (08:12)
[2021-05-17] MEDS: Isosorbide MONOnitrate (24 HR) 60 MG TAB.ER.24H PO SCH (08:13)
[2021-05-17] MEDS: Cyanocobalamin (B-12) 1,000 MCG TABLET PO SCH (08:13)
[2021-05-17] MEDS: Isosorbide MONOnitrate (24 HR) 30 MG TAB.ER.24H PO SCH (08:13)
[2021-05-17] MEDS: Aspirin Enteric Coated 81 MG Tablet PO SCH (08:13)
[2021-05-17] MEDS: amLODIPine 5 MG TABLET PO SCH (08:13)
[2021-05-17 10:54] VITALS: BP 160/79; PULSE 76; TEMP 97.3
[2021-05-17 11:10] VITALS: O2SAT 95
== END 2021-05-17 13:53 | disposition home or self-care (01) | DRG 177 ==
LOC: EMEROOARM 22:09 → 3BNU 22:09 → SUATTDRO 05-15 02:37 → 3BNU 05-15 03:23
PROVIDERS: ADMIT Internal Medicine; ATTEND Internal Medicine